=== PATIENT | female | born 2000 ===

== ENCOUNTER 2022-05-07 19:41 | Emergency (ER) | payer SELFPAY ==
[~2022-05-07] VITALS: Ht 167.6 cm; Wt 61.2 kg
[2022-05-08 07:18] VITALS: BP 122/79
== END 2022-05-07 22:48 | disposition left against medical advice (07) | DRG 951 ==
LOC: ED 19:41 → LWOBS 22:48 → ED 22:48
DX: Z53.21 Procedure and treatment not carried out due to patient leaving prior to being seen by health care provider (principal)